=== PATIENT | female | born 1965 | race Caucasian/White ===

== ENCOUNTER 2016-06-02 06:57 | Day surgery (SDC) | payer BC ==
[2016-05-30 10:51] VITALS: BP 133/91
[~2016-06-02] VITALS: Ht 172.7 cm; Wt 82.0 kg
[~2016-06-02 06:57] MED LIST: CHOL100011 PO; MULT-658 PO; OMEG100023 PO
[2016-06-02] MEDS ORDERED: CEFAZOLIN 1,000 MG ONE (07:10)
[2016-06-02] MEDS ORDERED: DEXAMETHASONE 4 MG/ML, 1ML ONE (07:10)
[2016-06-02] MEDS ORDERED: ONDANSETRON 2MG/ML, 2ML ONE (07:10)
[2016-06-02] MEDS ORDERED: PROPOFOL 10 MG/ML, 20ML ONE (07:10)
[2016-06-02] MEDS ORDERED: METOCLOPRAMIDE 5 MG/ML, 2ML ONE (07:10)
[2016-06-02] MEDS ORDERED: LACTATED RINGERS 1,000 ML IV SCH (07:40)
[2016-06-02] MEDS ORDERED: FENTANYL PF 100 MCG/2ML ONE ×2 (07:54→09:33)
[2016-06-02] MEDS ORDERED: MIDAZOLAM 1 MG/ML, 2ML ONE (07:54)
[2016-06-02] MEDS ORDERED: LIDOCAINE 1%, 2ML SQ PRN (08:00)
[2016-06-02] MEDS ORDERED: LIDOCAINE 1%, 2ML ONE (08:05)
[2016-06-02 08:19] LABS: HCG UR OBC PASS
[2016-06-02] MEDS ORDERED: OXYcodone 5 MG/5 ML ORAL.SOL UDC PO PRN (10:00)
[2016-06-02] MEDS ORDERED: FENTANYL PF 100 MCG/2ML IV PRN (10:00)
[2016-06-02] MEDS ORDERED: PROMETHAZINE 25 MG/ML, 1ML IV PRN (10:00)
[2016-06-02] MEDS ORDERED: HYDROmorphone 1 MG/ML, 1ML IV PRN (10:00)
[2016-06-02] MEDS ORDERED: ONDANSETRON 2MG/ML, 2ML IVPush PRN (10:00)
[2016-06-02] MEDS ORDERED: MIDAZOLAM 1 MG/ML, 2ML IV PRN (10:00)
[2016-06-02] MEDS ORDERED: MEPERIDINE/PF 25MG/0.5ML IVPush PRN (10:00)
[2016-06-02] MEDS ORDERED: hydrALAzine 20 MG/ML, 1ML IV PRN (10:00)
[2016-06-02] MEDS ORDERED: LABETALOL 5MG/ML, 20ML IV PRN (10:00)
[2016-06-02] MEDS ORDERED: ACETAMINOPHEN 325 MG TABLET ONE (11:01)
[2016-06-02] MEDS ORDERED: OXYcodone 5 MG/5 ML ORAL.SOL UDC ONE (11:02)
[2016-06-02] MEDS ORDERED: ACETAMINOPHEN 325 MG TABLET PO PRN (11:30)
== END 2016-06-02 12:15 | disposition home or self-care (01) ==
LOC: OUT 06:57
PROVIDERS: ATTEND Orthopaedic Surgery Foot and Ankle Surgery
DX: M62.571 Muscle wasting and atrophy, not elsewhere classified, right ankle and foot (principal); M25.774 Osteophyte, right foot; Z82.49 Family history of ischemic heart disease and other diseases of the circulatory system; Z72.89 Other problems related to lifestyle
CPT/HCPCS: 28750; 73630; 76000; 81025; C1713; C1769; J0690; J1100; J2250; J2405; J2704; J2765; J3010; J3490; J7120

== ENCOUNTER → 2017-11-23 | Outpatient (CLI) | payer BC | END | disposition home or self-care (01) | LOC: CFH 12:53 | PROVIDERS: ATTEND Nurse Practitioner Family | DX: Z12.31 Encounter for screening mammogram for malignant neoplasm of breast (principal) | CPT/HCPCS: 77063; 77067 ==

== ENCOUNTER → 2017-12-13 | Outpatient (CLI) | payer BC | END | disposition home or self-care (01) | LOC: CFH 10:47 | PROVIDERS: ATTEND Nurse Practitioner Family | DX: N63.20 Unspecified lump in the left breast, unspecified quadrant (principal) | CPT/HCPCS: 77065 ==